=== PATIENT | female | born 1960 | race African-American/Black ===

== ENCOUNTER 2016-04-06 13:56 | Emergency (ER) | payer MEDICARE, OTHER ==
--- NOTE | 2016-04-06 15:02 | ED Physician Documentation ---
Upper Respiratory Symptoms - HISTORIAN Historian: patient - HPI Stated Complaint: dizzy Chief Complaint: Upper Respiratory Symptoms Onset: hours Further Comments: yes (55 year old female patient presents with complaints of dizziness for the past few hours, headache, cough and nasal congestion. Patient states the dizziness has resolved since she has been in the ER.) - ROS CONST/EYES: denies: weakness, eye redness, eye itching CVS/RESP: none LYMPH: denies: leg swelling, rash, swollen glands GI/: none NEURO/PSYCH: denies: fainting, dizziness MS/SKIN: denies: joint pain, muscle aches - PAST HX Lung Disease: COPD Surgeries/Procedures: hysterectomy, other (L lung resection for coxcidiomycosis) Allergies/Adverse Reactions: Allergies Allergy/AdvReac Type Severity Reaction Status Date / Time No Known Allergies Allergy Verified 04/06/16 14:27 Home Medications: Ambulatory Orders Medication Instructions Recorded Fluticasone/Salmeterol [Advair 1 each IH BID 08/16/12 250-50 Diskus] Tiotropium [place] [Spiriva] 1 mcg IH QD 08/16/12 Cefdinir 300 mg PO BID #20 capsule 04/06/16 - SOCIAL HX Smoking History: non-smoker - FAMILY HX Family History: no significant history - VITAL SIGNS Vital Signs: Vital Signs Temp Pulse Resp BP Pulse Ox 98.4 F 84 20 152/79 97 04/06/16 15:12 04/06/16 15:12 04/06/16 15:12 04/06/16 15:12 04/06/16 15:12 - REVIEWED ASSESSMENTS Nursing Assessment Reviewed: Yes Vitals Reviewed: Yes Progress - Progress Progress: Orthostatics negative. Upper Respiratory Symptoms - EXAM General Appearance: mild distress EENT: eyes nml inspection, lids & conjunct. nml, PERRL, ear nml, pain over sinuses, frontal, maxillary, nose nml, pharynx nml, airway nml Respiratory: no resp. distress, breath sounds nml, no pain on inspiration, speaks full sentences, no pleuritic chest pain Abdomen: non-tender, no organomegaly, nml bowel sounds, no distention CVS: reg rate & rhythm, heart sounds normal, equal pulses, no murmur, no gallop , PMI nml, no JVD, no friction rub, 24 Skin: color nml, no rash, warm,dry Extremities: non-tender, normal range of motion, no evidence of injury, no edema , J, INCLUSION PARAEDUCATOR Neuro/Psych: oriented x3, neuro intact, mood/affect nml, CN's nml as tested Discharge Clincal Impression: Acute frontal sinusitis Qualifiers: Recurrence: not specified as recurrent Qualified Code(s): J01.10 - Acute frontal sinusitis, unspecified Maxillary sinusitis, acute Qualifiers: Recurrence: not specified as recurrent Qualified Code(s): J01.00 - Acute maxillary sinusitis, unspecified Prescriptions: Cefdinir 300 mg PO BID #20 capsule Referrals: Judy Nunez MD [Primary Care Provider] - 2 Days Home Medications: Ambulatory Orders Fluticasone/Salmeterol [Advair 250-50 Diskus] 1 each IH BID 08/16/12 Tiotropium [place] [Spiriva] 1 mcg IH QD 08/16/12 Cefdinir 300 mg PO BID #20 capsule 04/06/16 Condition: Stable Disposition: 01 HOME, SELF-CARE Decision to Admit: NO Decision Time: 15:02
[2016-04-06 15:13] VITALS: BP 152/79
== END 2016-04-06 15:12 | disposition home or self-care (01) ==
LOC: ED 13:56
DX: J01.10 Acute frontal sinusitis, unspecified (principal); J01.00 Acute maxillary sinusitis, unspecified
CPT/HCPCS: 99282

== ENCOUNTER 2016-07-20 21:38 | Emergency (ER) | payer MEDICARE ==
--- NOTE | 2016-07-20 22:03 | ED Physician Documentation ---
Lower Extremity Problem - HISTORIAN Historian: patient - HPI Stated Complaint: fell and injured top of right fooe and great toe 1 cm lac noted to top of f Chief Complaint: Foot Injury Location of Injury: R foot Where: home - ROS CONST: no problems - PAST HX Past History: other (coccidiomycosis) Surgeries/Procedures: hysterectomy, other (lung resection, lumpectomy, ) Allergies/Adverse Reactions: Allergies Allergy/AdvReac Type Severity Reaction Status Date / Time No Known Allergies Allergy Verified 04/06/16 14:27 Home Medications: Ambulatory Orders Medication Instructions Recorded Fluticasone/Salmeterol [Advair 1 each IH BID 08/16/12 250-50 Diskus] Tiotropium [place] [Spiriva] 1 mcg IH QD 08/16/12 Aspirin [Arleth] 81 mg PO DAILY 07/20/16 - SOCIAL HX Smoking History: non-smoker - FAMILY HX Family History: no significant history - VITAL SIGNS Vital Signs: Vital Signs Temp Pulse Resp BP Pulse Ox 97.9 F 76 18 210/103 98 07/20/16 21:38 07/20/16 21:38 07/20/16 21:38 07/20/16 21:38 07/20/16 21:38 - REVIEWED ASSESSMENTS Nursing Assessment Reviewed: Yes Vitals Reviewed: Yes Progress - Progress Progress: Right foot - three views Clinical history: Fall with injury. Pain. Findings: Examination of the right foot in plantar, lateral and oblique views demonstrates degenerative changes with narrowing of the interphalangeal joints. Small calcaneal spur is seen at the site of insertion of the plantar aponeurosis. There is no evident fracture and no lytic or blastic lesion. Impression: 1. Degenerative changes. 2. No fracture. Electronically signed on Jul 20, 2016 10:21:12 PM CDT by: Kamar Plata ED Results Lab/Radiology - Orders Orders: ED Orders Category Date Time Status FOOT 3 VIEWS OR MORE [RAD] Stat Exams 07/20/16 Ordered Lower Extremity Problem - EXAM General Appearance: mild distress Legs: right: no evidence of injury, left: ecchymosis (proximal medial tibia) Knees: bilateral: normal inspection, no evidence of injury Ankle: bilateral: normal inspection, no evidence of injury Foot: right foot: abrasions/lacerations (superficial lac 1.25 cm in length overr mid firts metatarsal), pain (mid foot), left foot: normal inspection, no evidence of injury RESPIRATORY: no resp distress JOINT: joints nml, limited ROM (2/2 pain) VASCULAR: no vascular compromise, pulses full/equal NEURO/PSYCH: CN's nml as tested, motor nml, sensation nml SKIN: warm/dry, normal color BACK: other (movements w/o pain) Discharge Clincal Impression: contusion right foot, abrasion right foot, Fall at home Home Medications: Ambulatory Orders Fluticasone/Salmeterol [Advair 250-50 Diskus] 1 each IH BID 08/16/12 Tiotropium [place] [Spiriva] 1 mcg IH QD 08/16/12 Aspirin [Arleth] 81 mg PO DAILY 07/20/16 Condition: Good Disposition: 01 HOME, SELF-CARE Decision to Admit: NO Decision Time: 22:35
[2016-07-20] MEDS ORDERED: IBUPROFEN 400 MG TABLET PO ONE (22:32)
[2016-07-20 22:50] VITALS: BP 171/92
--- NOTE | 2016-07-21 05:42 | Diagnostic Imaging Report ---
WILFRIDO MERIDA [facility] [address] [facility].[address] [address] Report Submission Date: Jul 20, 2016 10:21:12 PM CDT Patient Study Name: GUIDO HERRON+ Date: Jul 20, 2016 10:01:18 PM CDT Modality Type: CR Gender: F Description: LOWER EXTREMITY : 56 Institution: [facility] Physician: WILFRIDO MERIDA Right foot - three views Clinical history: Fall with injury. Pain. Findings: Examination of the right foot in plantar, lateral and oblique views demonstrates degenerative changes with narrowing of the interphalangeal joints. Small calcaneal spur is seen at the site of insertion of the plantar aponeurosis. There is no evident fracture and no lytic or blastic lesion. Impression: 1. Degenerative changes. 2. No fracture. Electronically signed on Jul 20, 2016 10:21:12 PM CDT by: Kamar OROURKE
== END 2016-07-20 22:43 | disposition home or self-care (01) ==
LOC: ED 21:38
DX: S90.31XA Contusion of right foot, initial encounter (principal); W19.XXXA Unspecified fall, initial encounter; Y93.9 Activity, unspecified; Y99.9 Unspecified external cause status
CPT/HCPCS: 73630; 99283

== ENCOUNTER 2016-09-29 09:41 | Outpatient (CLI) | payer MEDICARE ==
[2016-09-29 10:41] LABS: eGFR (African) > 60; eGFR (Non-African) > 60
== END 2016-09-29 09:42 ==
LOC: LAB 09:41
PROVIDERS: ATTEND Family Medicine
DX: I10 Essential (primary) hypertension (principal)
CPT/HCPCS: 36415; 80053; 80061

== ENCOUNTER 2016-09-30 10:22 | Outpatient (CLI) | payer MEDICARE | END 2016-09-30 10:23 | LOC: CARD 10:22 | PROVIDERS: ATTEND Internal Medicine Cardiovascular Disease | DX: I10 Essential (primary) hypertension (principal) | CPT/HCPCS: G0463 ==

== ENCOUNTER 2017-07-02 09:39 | Outpatient (CLI) | payer MEDICARE ==
--- NOTE | 2017-07-02 18:35 | Diagnostic Imaging Report ---
ROOSEVELT GAN [facility] [address] [facility] [address] [place], [place]. [address] Report Submission Date: Jul 02, 2017 10:17:58 AM CDT Patient Study Name: ABILIO ALVA Date: Jul 02, 2017 9:46:39 AM CDT Modality Type: CT\SR Gender: F Description: CT BRAIN W/O CONTRAST : 56 Institution: [facility] Physician: ROOSEVELT GAN Examination: CT head without contrast History: CT HEAD, W/O CONTRAST, HEADACHES FOR OVER A MONTH, NO PRIOR HX OF HEADACHES (Hx) Comparison exam: None available Technique: Noncontrast head CT protocol. Findings: Ventricles and sulci are prominent, though consistent for patient age. Cerebrocerebellar parenchyma demonstrates periventricular low attenuation consistent with small vessel disease. No evidence for parenchymal hemorrhage. No evidence for mass or mass effect. No midline shift. No extra axial fluid collections. Partial visualization of the paranasal sinuses demonstrate scattered mucous thickening. Mastoid air cells, orbits, skull and scalp without gross irregularity. Impression: Age related changes. No acute parenchymal process. No hemorrhage. If symptoms persist, consider obtaining MRI brain to further evaluate. Electronically signed on Jul 02, 2017 10:17:58 AM CDT by: Gunnar OROURKE
== END 2017-07-02 09:40 ==
LOC: RAD 09:39
PROVIDERS: ATTEND Family Medicine
DX: G44.52 New daily persistent headache (NDPH) (principal)
CPT/HCPCS: 70450